=== PATIENT | female | born 1970 | race Caucasian/White ===

== ENCOUNTER 2020-06-07 10:02 | Day surgery (SDC) | payer BC ==
[~2020-06-07 10:02] MED LIST: DIPRIVAN 200 MG/20 ML IV ONE; Ketamine HCl 50 MG/ML ONE
[2020-06-07] MEDS ORDERED: Xylocaine-Mpf 2% 5 Ml Vial IJ ONE (10:03)
[2020-06-07] MEDS ORDERED: Decadron 4 MG INJ IV ONE (10:03)
--- NOTE | 2020-06-07 12:48 | XRAY ---
Indication: Left C2-C4 MBB. Intraoperative fluoroscopy provided for 23 seconds. 2 digital spot images submitted for interpretation demonstrates posterior needle tips projecting over the expected left C2-C4 nerve roots. Correlate with intraoperative findings/report. Incidental C3-C5 fusion hardware.
--- NOTE | 2020-06-07 12:50 | XRAY ---
23 seconds fluoroscopy time in surgery for left C2-C4 MBB.
[2020-06-07] MEDS ORDERED: Lactated Ringers 1,000 ML IV ONE (13:44)
== END 2020-06-07 12:20 | disposition home or self-care (01) ==
LOC: SDC-PAIN 10:02
PROVIDERS: ATTEND Psychiatry & Neurology Pain Medicine
DX: M47.812 Spondylosis without myelopathy or radiculopathy, cervical region (principal); I10 Essential (primary) hypertension; F41.8 Other specified anxiety disorders; Z79.899 Other long term (current) drug therapy
CPT/HCPCS: 72020; 77002; 84703; J1100; J2704

== ENCOUNTER 2021-02-05 08:31 | Day surgery (SDC) | payer OTHER ==
[2021-02-05] MEDS ORDERED: Lactated Ringers 1,000 ML IV ONE ×2 (08:39→09:34)
--- NOTE | 2021-02-05 08:50 | HP ---
DATE OF SURGERY: 02/05/2021 HISTORY OF PRESENT ILLNESS: The patient is a 50 year-old with past history of sister with colon cancer in the past. She denies any current bloody stools. The patient did have some right upper quadrant aches and pains in the past, had some problems with diarrhea. Given her family history of colon cancer in the past, she is in need of follow up colonoscopy. PAST MEDICAL HISTORY: Diabetes. Hypertension. Irritable bowel syndrome. History of kidney cancer and colon cancer. PAST SURGICAL HISTORY: Arthroscopic knee surgery, neck disc replacements and discs in her lower back. Rotator cuff in the past. MEDICATIONS: Lisinopril, Vyvanse, Viibryd, Methylphenidate. ALLERGIES: SENSITIVE TO CODEINE. FAMILY HISTORY: Negative in regards to this problem. SOCIAL HISTORY: Denies smoking. Drinks alcohol a couple times a week. REVIEW OF SYSTEMS: Fourteen systems reviewed. No chest pain or palpitations. Other systems negative or noncontributory as above and per preadmission questionnaire. PHYSICAL EXAMINATION: GENERAL: No acute distress. HEENT: Sclerae nonicteric. NECK: No JVD. CHEST: Equal excursion, nonlabored breathing. CVS: Regular rate and rhythm. ABDOMEN: Soft. No peritoneal signs. EXTREMITIES: No significant edema. NEURO: Alert, oriented, moving extremities symmetrically. PSYCH: Appropriate mood and affect. IMPRESSION: Family history of colon cancer, need follow up screening colonoscopy. She also had some nausea, vomiting, upper abdominal aches. She is in need of upper endoscopy to rule out dietary or other etiology will proceed with follow up screening colonoscopy as well as upper endoscopy as an outpatient. Risks and benefits explained in detail including but not limited to bleeding or infection, risk of bowel injury or perforation possibly requiring open procedure, risk of missed or nondiagnosis or incomplete exam possibly requiring barium enema/barium swallow, other studies or procedures. General risk of anesthesia or sedation, risk of bowel prep but not limited to, consent obtained, will procedure outpatient follow up screening colonoscopy as well as upper endoscopy.
[2021-02-05] MEDS ORDERED: Lactated Ringers 1,000 ML IV SCH (09:00)
[2021-02-05] MEDS ORDERED: CLINDAMYCIN-D5W 900 MG/50 ML*** 900 MG/50 ML BAG IV ONE (09:37)
[2021-02-05] MEDS ORDERED: Levofloxacin 500MG/100ML D5W 500 MG/100 ML BAG IV ONE (09:38)
[2021-02-05] MEDS ORDERED: DIPRIVAN 200 MG/20 ML IV ONE ×2 (10:48→11:09)
[2021-02-05] MEDS ORDERED: Versed 2 MG/2 ML Injection ONE (10:48)
[2021-02-05] MEDS ORDERED: Xylocaine-Mpf 2% 5 Ml Vial ONE (10:49)
[2021-02-05 12:15] VITALS: BP 116/86; PULSE 75; O2SAT 98
--- NOTE | 2021-02-06 08:03 | OP ---
SURGERY DATE/TIME: 02/05/2021 1052 PREOPERATIVE DIAGNOSES: 1) Family history of colon cancer, need for screening colonoscopy. 2) Some nausea and vomiting with some upper abdominal aches, need for upper endoscopy to evaluate for gastritis, duodenitis or celiac disease. POSTOPERATIVE DIAGNOSES: 1) ASA Class II. 2) Minimal to mild gastritis. 3) Fair bowel prep. 4) Fair normal appearing colon exam and terminal ileum. PROCEDURES: 1) EGD with cold biopsy of small bowel to evaluate for celiac sprue. 2) Cold biopsy of antrum to evaluate for Helicobacter pylori. 3) Some random cold biopsies of esophagus to evaluate eosinophilic esophagitis. 4) Colonoscopy to terminal ileum. 5) Retrograde ileoscopy. 6) Some random cold biopsies of colon to evaluate for microscopic colitis. SURGEON: Dr. Jatin Lopes. ANESTHESIA: MAC. ESTIMATED BLOOD LOSS: Minimal. INDICATIONS: As noted above. Risks and benefits explained in detail and not limited to and consent obtained. DESCRIPTION OF PROCEDURE AND FINDINGS: The patient is taken to the operating room. MAC anesthesia introduced. After official time out and no disagreement with planned procedure, bite block positioned. Video gastroscope easily passed down the esophagus through the patent pylorus down to the second and third portions of the duodenum. Third, second, first portions of duodenum grossly unremarkable. Given her symptom complaints with some nausea, vomiting and some vague ache at times some cold biopsies taken of the small bowel to rule out celiac sprue. Good hemostasis noted. The scope pulled back in the stomach. She did have some mild gastric erythema. It was felt she had some minimal to mild gastritis. Cold biopsy taken to evaluate for Helicobacter pylori. Good hemostasis noted. On retroflex, the gastroesophageal junction snug against the scope. No signs of any significant hiatal hernia. Otherwise the scope was straightened, pulled back. No signs of any ulcers, polyps or any other mucosal lesions in the stomach. The scope pulled back to gastroesophageal junction. The Z-line was fairly crisp. The gastroesophageal junction was around 39 cm. Given her symptom complaints of her vague nausea and vomiting some random cold biopsies taken to evaluate for eosinophilic esophagitis. Good hemostasis noted. The scope is withdrawn. Attention is then turned to colonoscopy. Digital rectal exam did not reveal any rectal masses. Video colonoscope inserted. She had some minimal internal hemorrhoids. Video colonoscope inserted and passed up through the slightly tortuous sigmoid, descending, transverse and ascending colon. With external pressure the scope was able to be passed around to the cecum and up the terminal ileum. Retrograde ileoscopy was performed which was grossly unremarkable. No signs of any inflammatory bowel disease or other mucosal lesions. The scope is slowly and carefully withdrawn over the next seven minutes. Appendiceal orifice and valve were photo documented. The terminal ileum is photo documented. The scope was slowly and carefully withdrawn. Given her vague complaints of nausea, vomiting and some right-sided aches at times some random cold biopsies were taken to evaluate for microscopic colitis. Otherwise the prep overall was fair. Withdrawal time was around seven minutes. The scope is slowly and carefully withdrawn. There are no signs of any large polyps, masses or obstructing lesions. The scope is withdrawn. The patient tolerated the procedure well. There were no immediate complications. Given her family history of colon cancer, if the path is benign, I recommend follow up colonoscopy in five years.
== END 2021-02-05 12:14 | disposition home or self-care (01) ==
LOC: SDC 08:31
PROVIDERS: ATTEND Surgery
DX: Z12.11 Encounter for screening for malignant neoplasm of colon (principal); Z80.0 Family history of malignant neoplasm of digestive organs; K29.70 Gastritis, unspecified, without bleeding; K64.8 Other hemorrhoids; R11.2 Nausea with vomiting, unspecified
CPT/HCPCS: 84703; J1956; J2250; J2704

== ENCOUNTER 2022-06-05 15:00 | Day surgery (SDC) | payer OTHER ==
[2022-06-05] MEDS ORDERED: Marcaine Mpf 0.5% Vial 30 Ml IJ ONE (15:01)
[2022-06-05] MEDS ORDERED: DIPRIVAN 200 MG/20 ML IV ONE (16:48)
[2022-06-05] MEDS ORDERED: Lactated Ringers 1,000 ML IV ONE (17:41)
--- NOTE | 2022-06-05 19:43 | XRAY ---
Indication: Left C2-C4 MBB. Intraoperative fluoroscopy provided for 17 seconds. 2 digital spot images submitted for interpretation demonstrates posterior needle tips projecting over the expected left C2-C4 nerve roots. Correlate with intraoperative findings/report. Incidental partially visualized C3-C4 anterior fusion hardware.
--- NOTE | 2022-06-06 10:58 | XRAY ---
17 seconds of fluoroscopy was used in surgery for a left C2-C4 MBB.
== END 2022-06-05 17:15 | disposition home or self-care (01) ==
LOC: SDC-PAIN 15:00
PROVIDERS: ATTEND Psychiatry & Neurology Pain Medicine
DX: M47.812 Spondylosis without myelopathy or radiculopathy, cervical region (principal); Z79.899 Other long term (current) drug therapy
CPT/HCPCS: 64490; 64491; 72040; 77002; 81025; J2704

== ENCOUNTER 2023-03-05 07:21 | Day surgery (SDC) | payer OTHER ==
[2023-03-05] MEDS ORDERED: Decadron 4 MG INJ IV ONE (07:22)
[2023-03-05] MEDS ORDERED: BUPIVACAINE 0.5% VIAL IJ ONE (07:22)
[2023-03-05] MEDS ORDERED: LIDOCAINE HCL 1% 50 MG/5 ML VL PF IJ ONE (07:22)
[2023-03-05 07:37] LABS: HCG URINE TEST NEGATIVE (NEGATIVE)
[2023-03-05] MEDS ORDERED: DIPRIVAN 200 MG/20 ML IV ONE ×2 (08:04→08:16)
--- NOTE | 2023-03-05 09:52 | XRAY ---
Indication: Left C2-C4 RFA Intraoperative fluoroscopy provided for 31 seconds. 4 digital spot images submitted for interpretation demonstrates posterior needle tips projecting over the expected left C2-C4 nerve roots. Correlate with intraoperative findings/report. Incidental incompletely visualized multilevel anterior cervical fusion hardware.
--- NOTE | 2023-03-05 10:46 | XRAY ---
31 seconds of fluoroscopy was used in surgery for a left C2-C4 RFA.
[2023-03-05] MEDS ORDERED: Lactated Ringers 1,000 ML IV ONE (10:50)
== END 2023-03-05 08:50 | disposition home or self-care (01) ==
LOC: SDC-PAIN 07:21
PROVIDERS: ATTEND Psychiatry & Neurology Pain Medicine
DX: M47.812 Spondylosis without myelopathy or radiculopathy, cervical region (principal); R73.03 Prediabetes
CPT/HCPCS: 64633; 64634; 72040; 77002; 81025; 82947; J1100; J2001; J2704

== ENCOUNTER 2023-10-01 06:51 | Day surgery (SDC) | payer OTHER ==
[2023-10-01] MEDS ORDERED: LIDOCAINE HCL 2% 100 MG/5 ML IJ ONE (06:52)
[2023-10-01 07:14] LABS: HCG URINE TEST NEGATIVE (NEGATIVE)
[2023-10-01] MEDS ORDERED: DIPRIVAN 200 MG/20 ML IV ONE (08:43)
[2023-10-01] MEDS ORDERED: Lactated Ringers 1,000 ML IV ONE (09:34)
--- NOTE | 2023-10-01 11:24 | XRAY ---
Indication: Right C2-C4 MBB. Intraoperative fluoroscopy provided for 13 seconds. 3 digital spot images submitted for interpretation demonstrates posterior needle tips projecting over the expected right C2-C4 nerve roots. Correlate with intraoperative findings/report. Incidental incompletely visualized lower cervical fusion hardware.
--- NOTE | 2023-10-01 11:47 | XRAY ---
13 seconds of fluoroscopy was used in surgery for a right C2-C4 MBB.
== END 2023-10-01 09:22 | disposition home or self-care (01) ==
LOC: SDC-PAIN 06:51
PROVIDERS: ATTEND Psychiatry & Neurology Pain Medicine
DX: M47.812 Spondylosis without myelopathy or radiculopathy, cervical region (principal); E11.9 Type 2 diabetes mellitus without complications
CPT/HCPCS: 64490; 64491; 72040; 77002; 81025; 82947; J2704

== ENCOUNTER 2023-10-29 07:05 | Day surgery (SDC) | payer OTHER ==
[2023-10-29] MEDS ORDERED: BUPIVACAINE 0.5% VIAL IJ ONE (07:06)
[2023-10-29 08:04] LABS: HCG URINE TEST NEGATIVE (NEGATIVE)
[2023-10-29] MEDS ORDERED: DIPRIVAN 200 MG/20 ML IV ONE (09:14)
--- NOTE | 2023-10-29 10:43 | XRAY ---
Indication: Right C2-C4 MBB. Intraoperative fluoroscopy provided for 10 seconds. 2 digital spot image submitted for interpretation demonstrates posterior needle tips projecting over the expected right C2-C4 nerve roots. Correlate with intraoperative findings/report. Incidental lower cervical fusion hardware.
--- NOTE | 2023-10-29 10:53 | XRAY ---
10 seconds of fluoroscopy was used in surgery for a right C2-C4 MBB.
[2023-10-29] MEDS ORDERED: Lactated Ringers 1,000 ML IV ONE (11:50)
== END 2023-10-29 09:56 | disposition home or self-care (01) ==
LOC: SDC-PAIN 07:05
PROVIDERS: ATTEND Psychiatry & Neurology Pain Medicine
DX: M47.812 Spondylosis without myelopathy or radiculopathy, cervical region (principal); R73.03 Prediabetes
CPT/HCPCS: 64490; 64491; 72040; 77002; 81025; 82947; J2704

== ENCOUNTER 2023-12-22 23:03 | Observation (INO) | payer SELFPAY ==
[2023-12-23] MEDS ORDERED: Zofran 4 MG/2 ML VIAL ONE (00:33)
[2023-12-23 00:34] LABS: Absolute Neutrophil Ct (ANC) 6.06 x10^3/uL (1.4-6.9); BASOPHIL % 0.5 % (0.0-0.4); Basophil (Absolute #) 0.05 x10^3/uL (0-0.4); Eosinophil % 1.8 % (0.00-5.0); Eosinophil (Absolute #) 0.17 x10^3/uL (0-0.5); Hematocrit 42.5 % (35-47); Hemoglobin 14.2 g/dL (12.0-16.0); IMMATURE GRAN # 0.02 x10^3u/L (0.00-0.03); IMMATURE GRAN % 0.2 % (0.00-0.4); Lymphocyte (Absolute #) 2.16 x10^3/uL (1.0-4.6); Lymphocytes % 23.3 % (24.0-44.0); Mean Cell Volume 87.1 fL (78-100); Mean Corpuscular Hemoglobin 29.1 pg (26-32); Mean Corpuscular Hgb Concent. 33.4 g/dL (32-36); Mean Platelet Volume 10.5 fL (7.5-11.0); Monocyte (Absolute #) 0.82 x10^3/uL (0.0-1.3); Monocytes % 8.8 % (0.0-12.0); Neutrophil % 65.4 % (36.0-66.0); Platelet Count 216 x10^3/uL (150-450); Red Blood Count 4.88 x10^6/uL (4.1-5.4); Red Cell Distribution Width 13.7 % (11.5-14.0); White Blood Count 9.3 x10^3/uL (4.0-10.5)
[2023-12-23] MEDS ORDERED: Hydromorphone 1 mg/ml Injection ONE ×2 (00:34→08:14)
[2023-12-23] MEDS ORDERED: TORAdol 30 mg Injection ONE ×2 (00:34→07:45)
[2023-12-23] MEDS ORDERED: Sodium Chloride 0.9% 1000 ML 1,000 ML ONE (00:34)
[2023-12-23 00:40] LABS: Appearance Clear (Clear); Bacteria None Seen /HPF (None Seen); Bilirubin Negative (Negative); Blood Trace (Negative); Epithelial Cells Few /HPF (None Seen); Glucose, Urine Negative (Negative); Hyaline Casts NONE SEEN /LPF (0-2); Ketones Negative (Negative); Leukocyte Esterase Small (Negative); Nitrite Negative (Negative); Ph 7.5 (4.6-8.0); Protein,Urine Dip Negative (Negative)
[2023-12-23] MEDS: Sodium Chloride 0.9% 1000 ML 1,000 ML IV STA (00:42)
[2023-12-23] MEDS: Hydromorphone 1 mg/ml Injection IV ONE (00:43)
[2023-12-23] MEDS: Zofran 4 MG/2 ML VIAL IV ONE (00:44)
[2023-12-23] MEDS: TORAdol 30 mg Injection IV ONE (00:44)
[2023-12-23 00:48] LABS: ALBUMIN 4.1 g/dL (3.5-5.0); ANION GAP 8.8 MEQ/L (5-15); BILIRUBIN,TOTAL 0.9 mg/dL (0.2-1.3); Creatinine 1 0.79 mg/dL (0.52-1.04); EST GLOMERULAR FILTRATION RATE 89.4 ML/MIN; Potassium 3.6 mmol/L (3.5-5.1); Total Protein 7.3 g/dL (6.3-8.2)
[2023-12-23 00:49] LABS: ADD URINE CULTURE? YES (NO)
--- NOTE | 2023-12-23 02:49 | XRAY ---
CLINICAL HISTORY: acute appendicitis COMPARISON: None TECHNIQUE: Contiguous axial images were obtained from the level of the diaphragm to the pubic symphysis with intravenous contrast . Coronal and sagittal reconstructions were likewise performed and indicated to increase the sensitivity for detecting clinically relevant pathology. If IV contrast material had not been administered, the likelihood of detecting abnormalities relevant to the patient's condition would have been substantially decreased. CT scan was performed according to ALARA (as low as reasonable achievable). ? FINDINGS: The visualized lung bases are clear. The liver is normal in size and attenuation. multiple simple cyst involving both lobes of liver-largest measures about 20 x 13 mm in right lobe segment 6. There is no intra or extrahepatic biliary ductal dilatation. Hepatic vasculature is patent. The gallbladder is present. The spleen, pancreas, and adrenal glands are unremarkable. The kidneys are normal in size and attenuation. There is no hydronephrosis or perinephric fat stranding. No renal calculi or renal masses are identified. The ureters are normal in caliber and no ureteral calculi are seen. The bladder is normal in contour. Pelvic viscera are unremarkable. No focal or diffuse bowel wall thickening or evidence of bowel obstruction is identified. Appendix appears inflamed with its maximum diameter measures about 11.6 mm. It is noted at the subcaecal position with tiny fecolith of 2mm and moderate fat stranding in right iliac fossa. No obvious features of perforation at present. Abdominal and pelvic vasculature is patent. No adenopathy or fluid collections are seen. Surgical implant at L4-L5 disc space. No aggressive appearing osseous lesions are identified. IMPRESSION: Acute appendicitis. Multiple hepatic cysts. Electronically Signed by: Zane Pastrana MD. (12/23/2023 02:45:30 EDT)
[2023-12-23] MEDS ORDERED: PIPERACILLIN/TAZOBACTAM IV ONE ×3 (02:55→05:47)
[2023-12-23] MEDS ORDERED: Sodium Chloride 100ML MINI-BAG PLUS 100 ML IV ONE ×2 (02:56→05:49)
[2023-12-23] MEDS: PIPERACILLIN/TAZOBACTAM 3.375 GM in Sodium Chloride 100ML MINI-BAG PLUS 100 ML IV ONE (03:04)
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
[2023-12-23] MEDS ORDERED: EXPAREL 133 MG/10 ML VIAL IJ ONE (05:10)
[2023-12-23] MEDS ORDERED: Marcaine Mpf 0.5% Vial 30 Ml IJ ONE (05:10)
[2023-12-23] MEDS ORDERED: HUMALOG SQ PRN (05:25)
[2023-12-23] MEDS ORDERED: Zofran 4 MG/2 ML VIAL IV PRN (05:25)
[2023-12-23] MEDS ORDERED: TYLENOL 325 MG PO PRN (05:25)
[2023-12-23] MEDS ORDERED: MORPHINE SULFATE 2 MG INJ IV PRN (05:27)
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
[2023-12-23 05:39] LABS: INR 0.94 (0.8-3.0); PROTIME 10.3 SECONDS (9.4-12.5); PTT 28.5 SECONDS (25.1-36.5)
[2023-12-23] MEDS: PIPERACILLIN/TAZOBACTAM 3.375 GM in Sodium Chloride 100ML MINI-BAG PLUS 100 ML IV SCH (05:50)
[2023-12-23] MEDS: Sodium Chloride 0.9% 1000 ML 1,000 ML IV SCH (05:50)
[2023-12-23] MEDS ORDERED: Sensorcaine 0.25% 10 ML ONE ×2 (06:20→07:27)
[2023-12-23] MEDS ORDERED: Decadron 4 MG INJ ONE (06:40)
[2023-12-23] MEDS ORDERED: DIPRIVAN 200 MG/20 ML IV ONE (06:40)
[2023-12-23] MEDS ORDERED: ROCURONIUM BROMIDE IV ONE (06:40)
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
[2023-12-23] MEDS ORDERED: SUBLIMAZE 100 MCG/2 ML ONE ×3 (07:23→10:36)
[2023-12-23] MEDS ORDERED: BRIDION 200MG/2ML IV ONE (07:45)
[2023-12-23] MEDS ORDERED: MEDICATION INTERVENTION MC SCH ×2 (07:45)
[2023-12-23] MEDS ORDERED: Versed 2 MG/2 ML Injection ONE ×2 (08:42→10:36)
[2023-12-23] MEDS ORDERED: Lactated Ringers 1,000 ML IV ONE (09:08)
[2023-12-23] MEDS ORDERED: NON-FORMULARY ITEM (Vilazodone Hcl [Viibryd] 1 EACH Tab.Ds.Pk) PO SCH (10:00)
[2023-12-23] MEDS ORDERED: LISDEXAMFETAMINE DIMESYLATE 70 MG PO SCH (10:00)
[2023-12-23] MEDS: Zestril 10 MG PO SCH (10:15)
--- NOTE | 2023-12-23 10:15 | OP ---
SURGERY DATE: 12/23/2023 SURGERY TIME: 658 PREOPERATIVE DIAGNOSIS: 1. ACUTE APPENDICITIS. POSTOPERATIVE DIAGNOSIS: 1. ACUTE APPENDICITIS, NONPERFORATED. PROCEDURE: 1. Laparoscopic appendectomy. SURGEON: Alfonso Lomas M.D. ANESTHESIA: General. ESTIMATED BLOOD LOSS: Minimal. SPECIMENS: 1. Appendix. CONDITION: Stable. COMPLICATIONS: None. HISTORY OF PRESENT ILLNESS: The patient is a 53 year-old female who presents with a 2 days of abdominal pain migrating to the right lower quadrant. On exam, she has localized guarding. CT scan shows a dilated appendix with fecalith, acute appendicitis. Discussed with the patient the risks of infection, bleeding, injury to nearby structure, and hernia. She elected to proceed with surgery. FINDINGS: Nonperforated appendicitis. DESCRIPTION OF PROCEDURE: The patient was brought to the OR. General anesthesia was induced. She was routinely positioned, prepped, draped, time-out performed. Received a preoperative antibiotic. The Veress needle inserted in the left upper quadrant. Pneumoperitoneum established. A 12 mm OcuView trocar placed in the left lower quadrant. An additional 5 mm trocar was placed infraumbilical and supraumbilical at prior scars. The abdomen was surveyed. Patient positioned. There is an acutely distended, inflamed appendix. The mesentery was taken with LigaSure. The base taken with a wide load HANNAH stapler that is satisfactory hemostatic. The 12 trocar site removed, closed with 0 Vicryl suture passer. There actually is a bleeder there, so a figure 8 is required. The suprapubic removed. The umbilical used for desufflation and then removed. Skin was closed with 4-0 Vicryl suture, steri-strips, and sterile dressing applied. All counts are correct. The patient tolerated the procedure well. Plan is for extubation.
[2023-12-23] MEDS: Ritalin 5 MG PO SCH (11:53)
--- NOTE | 2023-12-23 12:00 | PCM.DS ---
Discharge Summary Date of Admission: 12/23/23 05:09 Date of Discharge: 12/23/23 Admitting Physician: JEANCARLOS EWING MD Consults: Consults on Case 12/23/23 05:23 Consult Surgery ROUTINE Primary Care Provider: ALICIA OCAMPO Allergies Allergies codeine Allergy (Severe, Verified 12/23/23 00:06) Difficulty Breathing Hospital Summary - Hospital Course Hospital Course: 12/23/23 is a 53 year old female who presented to the ED with right lower quadrant pain. The discomfort started approximately 2 days ago after eating some fried food and has progressed over the past 24 hours. Eventually the pain localized to the right lower quadrant when bending over today. She denies any falls or other trauma, fever no chills. Patient has had some nausea without vomiting. She does currently feel hungry. Her last oral intake was at approximately 4pm on 12/22/23. In the ED, the patient was noted to have acute appendicitis, and surgery was consulted with a request for hospitalist service admission. This AM she had a lap appy and now is doing well. She has no c/o pain and Bp is stable. She reports she follows Dr. Stokes with pain managemnt and has pain medication at home. [facility] sent in post op pain meds as well. Will continue post op vitals and if they remain stable will d/c later today. - Vitals & Intake/Output Vital Signs: Vital Signs Temperature 97.3 F 12/23/23 07:56 Pulse Rate 81 12/23/23 07:56 Respiratory Rate 17 12/23/23 07:56 Blood Pressure 94/52 12/23/23 07:56 O2 Sat by Pulse Oximetry 93 L 12/23/23 07:56 Intake & Output: Intake & Output 12/20/23 12/21/23 12/22/23 12/23/23 11:59 11:59 11:59 11:59 Weight 58.7 kg - Lab Result Diagrams: 12/23/23 00:22 12/23/23 00:22 Lab Results-Last 24 Hrs: Lab Results-Last 24 Hours 12/23/23 12/23/23 12/23/23 Range/Units 00:22 00:22 00:22 WBC 9.3 (4.0-10.5) x10^3/uL RBC 4.88 (4.1-5.4) x10^6/uL Hgb 14.2 (12.0-16.0) g/dL Hct 42.5 (35-47) % MCV 87.1 (78-100) fL MCH 29.1 (26-32) pg MCHC 33.4 (32-36) g/dL RDW 13.7 (11.5-14.0) % Plt Count 216 (150-450) x10^3/uL MPV 10.5 (7.5-11.0) fL Gran % 65.4 (36.0-66.0) % Immature Gran % (Auto) 0.2 (0.00-0.4) % Nucleat RBC Rel Count 0.0 (0.00-0.1) % Eos # (Auto) 0.17 (0-0.5) x10^3/uL Immature Gran # (Auto) 0.02 (0.00-0.03) x10^3u/L Absolute Lymphs (auto) 2.16 (1.0-4.6) x10^3/uL Absolute Monos (auto) 0.82 (0.0-1.3) x10^3/uL Absolute Nucleated RBC 0.00 (0.00-0.01) x10^3u/L Lymphocytes % 23.3 L (24.0-44.0) % Monocytes % 8.8 (0.0-12.0) % Eosinophils % 1.8 (0.00-5.0) % Basophils % 0.5 (0.0-0.4) % Absolute Granulocytes 6.06 (1.4-6.9) x10^3/uL Basophils # 0.05 (0-0.4) x10^3/uL PT (9.4-12.5) SECONDS INR (0.8-3.0) APTT (25.1-36.5) SECONDS Sodium 136 (135-145) mmol/L Potassium 3.6 (3.5-5.1) mmol/L Chloride 103 (98-107) mmol/L Carbon Dioxide 28 (22-30) mmol/L Anion Gap 8.8 (5-15) MEQ/L BUN 9 (7-17) mg/dL Creatinine 0.79 (0.52-1.04) mg/dL Estimated GFR 89.4 ML/MIN Glucose 101 (74-106) mg/dL Lactic Acid (0.4-2.0) Calcium 9.0 (8.4-10.2) mg/dL Total Bilirubin 0.90 (0.2-1.3) mg/dL AST 17 (14-36) U/L ALT 15 (0-35) U/L Alkaline Phosphatase 51 (38-126) U/L Serum Total Protein 7.3 (6.3-8.2) g/dL Albumin 4.1 (3.5-5.0) g/dL Amylase 82 (30-110) U/L Lipase 103 (23-300) U/L Urine Color Yellow (Yellow) Urine Appearance Clear (Clear) Urine pH 7.5 (4.6-8.0) Ur Specific [place] 1.020 (1.005-1.030) Urine Protein Negative (Negative) Urine Glucose (UA) Negative (Negative) mg/dL Urine Ketones Negative (Negative) Urine Blood Trace (Negative) Urine Nitrite Negative (Negative) Urine Bilirubin Negative (Negative) Urine Urobilinogen 1.0 A (0.2) mg/dL Ur Leukocyte Esterase Small A (Negative) U Hyaline Cast (Auto) NONE SEEN (0-2) /LPF Urine Microscopic RBC 3-5 (0-5) /HPF Urine Microscopic WBC 6-10 A (0-5) /HPF Ur Epithelial Cells Few (None Seen) /HPF Urine Bacteria None Seen (None Seen) /HPF Urine Culture Reflexed YES (NO) 12/23/23 12/23/23 Range/Units 00:40 04:00 WBC (4.0-10.5) x10^3/uL RBC (4.1-5.4) x10^6/uL Hgb (12.0-16.0) g/dL Hct (35-47) % MCV (78-100) fL MCH (26-32) pg MCHC (32-36) g/dL RDW (11.5-14.0) % Plt Count (150-450) x10^3/uL MPV (7.5-11.0) fL Gran % (36.0-66.0) % Immature Gran % (Auto) (0.00-0.4) % Nucleat RBC Rel Count (0.00-0.1) % Eos # (Auto) (0-0.5) x10^3/uL Immature Gran # (Auto) (0.00-0.03) x10^3u/L Absolute Lymphs (auto) (1.0-4.6) x10^3/uL Absolute Monos (auto) (0.0-1.3) x10^3/uL Absolute Nucleated RBC (0.00-0.01) x10^3u/L Lymphocytes % (24.0-44.0) % Monocytes % (0.0-12.0) % Eosinophils % (0.00-5.0) % Basophils % (0.0-0.4) % Absolute Granulocytes (1.4-6.9) x10^3/uL Basophils # (0-0.4) x10^3/uL PT 10.3 (9.4-12.5) SECONDS INR 0.94 (0.8-3.0) APTT 28.5 (25.1-36.5) SECONDS Sodium (135-145) mmol/L Potassium (3.5-5.1) mmol/L Chloride (98-107) mmol/L Carbon Dioxide (22-30) mmol/L Anion Gap (5-15) MEQ/L BUN (7-17) mg/dL Creatinine (0.52-1.04) mg/dL Estimated GFR ML/MIN Glucose (74-106) mg/dL Lactic Acid 0.8 (0.4-2.0) Calcium (8.4-10.2) mg/dL Total Bilirubin (0.2-1.3) mg/dL AST (14-36) U/L ALT (0-35) U/L Alkaline Phosphatase (38-126) U/L Serum Total Protein (6.3-8.2) g/dL Albumin (3.5-5.0) g/dL Amylase (30-110) U/L Lipase (23-300) U/L Urine Color (Yellow) Urine Appearance (Clear) Urine pH (4.6-8.0) Ur Specific [place] (1.005-1.030) Urine Protein (Negative) Urine Glucose (UA) (Negative) mg/dL Urine Ketones (Negative) Urine Blood (Negative) Urine Nitrite (Negative) Urine Bilirubin (Negative) Urine Urobilinogen (0.2) mg/dL Ur Leukocyte Esterase (Negative) U Hyaline Cast (Auto) (0-2) /LPF Urine Microscopic RBC (0-5) /HPF Urine Microscopic WBC (0-5) /HPF Ur Epithelial Cells (None Seen) /HPF Urine Bacteria (None Seen) /HPF Urine Culture Reflexed (NO) - Radiology Exams Ordered Rad Exams-Entire Visit: Radiology Procedures Category Date Time Status ABDOMEN AND PELVIS W CONTRAST [CT] Stat Exams 12/23/23 00:22 Completed Discharge Exam General Appearance: no apparent distress, alert Neurologic Exam: alert, oriented x 3, cooperative, normal mood/affect, nml cerebellar function, sensation nml, No motor deficits Eye Exam: PERRL, EOMI, eyes nml inspection Ears, Nose, Throat Exam: normal ENT inspection, pharynx normal, moist mucous membranes Neck Exam: normal inspection, non-tender, supple, full range of motion Respiratory Exam: normal breath sounds, lungs clear, No respiratory distress Cardiovascular Exam: regular rate/rhythm, normal heart sounds Gastrointestinal/Abdomen Exam: soft, other (post op incisions from lap appy, CDI), No tenderness, No mass Pelvic Exam: deferred Rectal Exam: deferred Back Exam: normal inspection, normal range of motion, No CVA tenderness, No vertebral tenderness Extremity Exam: normal inspection, normal range of motion Skin Exam: normal color, warm, dry Final Diagnosis/Problem List - Final Discharge Diagnosis/Problem (1) Acute appendicitis Current Visit: Yes Status: Acute Assessment & Plan: - lap appy today - post op pain meds sent in by [facility] - continue pain meds at home prescribed by pain management PRN - Zosyn gave in OR Code(s): K35.80 - UNSPECIFIED ACUTE APPENDICITIS (2) UTI (urinary tract infection) Current Visit: Yes Status: Acute Assessment & Plan: - UC pending - will d/c with antibiotics and follow culture Code(s): N39.0 - URINARY TRACT INFECTION, SITE NOT SPECIFIED - Discharge Discharge Date: 12/23/23 Disposition: Home, Self-Care Condition: Stable Prescriptions: New Oxycodone HCl 5 mg Ir [Oxy-IR 5 MG] 5 mg PO Q6H #20 tab MDD 4 Continue Methylphenidate HCl [Methylphenidate ER] 10 mg PO DAILY Vilazodone HCl [Viibryd] 1 each PO DAILY Lisdexamfetamine Dimesylate [Vyvanse] 70 mg PO DAILY Lisinopril 10 mg [Zestril 10 MG] 10 mg PO DAILY Hydrocodone/Acetaminophen [Hydrocodone-Acetamin 10-325 mg] 1 each PO Q6H PRN PRN PRN Reason: Pain Dapagliflozin Propanediol [Farxiga] 10 mg PO DAILY Atorvastatin Calcium 20 mg PO QHS Follow up with: ALICIA OCAMPO PA [Primary Care Provider] -
[2023-12-23] MEDS: NORCO 10-325 MG PO PRN (13:31)
[2023-12-23 15:08] VITALS: TEMP 97.3
[2023-12-23 15:09] VITALS: RESP 18; O2SAT 98
[2023-12-23 15:10] VITALS: BP 127/76; PULSE 109
[2023-12-23] MEDS ORDERED: ZOCOR 20MG PO SCH (22:00)
== END 2023-12-23 14:32 | disposition home or self-care (01) ==
LOC: ED 23:03 → MED SURG 12-23 05:09
PROVIDERS: ADMIT Internal Medicine; ATTEND Internal Medicine
DX: K35.80 Unspecified acute appendicitis (principal); N39.0 Urinary tract infection, site not specified; I10 Essential (primary) hypertension; R73.03 Prediabetes; Z79.899 Other long term (current) drug therapy; Z20.828 Contact with and (suspected) exposure to other viral communicable diseases
CPT/HCPCS: 36000; 36415; 44970; 74177; 80053; 81001; 82150; 83605; 83690; 85025; 85610; 85730; 87086; 96374; 96375; 99285; G0378; Q3014; 99140; J1100; J1170; J1885; J2250; J2405; J2704; J3010; L0625; A9270-GY

== ENCOUNTER 2023-12-24 10:47 | Emergency (ER) | payer SELFPAY ==
[2023-12-24 11:32] VITALS: RESP 17; TEMP 98.4; O2SAT 100
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
[2023-12-24 12:01] VITALS: BP 110/80; PULSE 78
== END 2023-12-24 12:02 | disposition home or self-care (01) ==
LOC: ED 10:47
DX: Z48.89 Encounter for other specified surgical aftercare (principal)
CPT/HCPCS: 99281

== ENCOUNTER 2024-04-14 08:26 | Day surgery (SDC) | payer BC, OTHER ==
[2024-04-14] MEDS ORDERED: LIDOCAINE HCL 1% 50 MG/5 ML VL PF IJ ONE (08:27)
[2024-04-14] MEDS ORDERED: Decadron 4 MG INJ IV ONE (08:27)
[2024-04-14] MEDS ORDERED: BUPIVACAINE 0.5% VIAL IJ ONE (08:27)
[2024-04-14 08:59] LABS: HCG URINE TEST NEGATIVE (NEGATIVE)
[2024-04-14] MEDS ORDERED: DIPRIVAN 200 MG/20 ML IV ONE (10:18)
--- NOTE | 2024-04-14 11:50 | XRAY ---
Indication: Right C2-C4 RFA. Intraoperative fluoroscopy provided for 10 seconds. 3 digital spot image submitted for interpretation demonstrates posterior needle tips projecting over the expected right C2-C4 nerve roots. Correlate with intraoperative findings/report. Incidental lower cervical fusion hardware.
[2024-04-14] MEDS ORDERED: Lactated Ringers 1,000 ML IV ONE (12:50)
--- NOTE | 2024-04-14 13:35 | XRAY ---
10 seconds of fluoroscopy was used in surgery for a right C2-C4 RFA.
== END 2024-04-14 10:59 | disposition home or self-care (01) ==
LOC: SDC-PAIN 08:26
PROVIDERS: ATTEND Psychiatry & Neurology Pain Medicine
DX: M47.812 Spondylosis without myelopathy or radiculopathy, cervical region (principal); R73.03 Prediabetes
CPT/HCPCS: 64635; 64636; 72040; 77002; 81025; 82947; J1100; J2001; J2704

== ENCOUNTER 2024-04-28 06:31 | Day surgery (SDC) | payer BC ==
[2024-04-28] MEDS ORDERED: Decadron 4 MG INJ IV ONE (06:32)
[2024-04-28] MEDS ORDERED: LIDOCAINE HCL 1% 50 MG/5 ML VL PF IJ ONE (06:32)
[2024-04-28] MEDS ORDERED: BUPIVACAINE 0.5% VIAL IJ ONE (06:32)
[2024-04-28 07:19] LABS: HCG URINE TEST NEGATIVE (NEGATIVE)
[2024-04-28] MEDS ORDERED: DIPRIVAN 200 MG/20 ML IV ONE (07:42)
[2024-04-28] MEDS ORDERED: Lactated Ringers 1,000 ML IV ONE (09:30)
--- NOTE | 2024-04-28 10:24 | XRAY ---
Indication: Left C2-C4 RFA. Intraoperative fluoroscopy was provided for 14 seconds. 2 digital spot images submitted for interpretation demonstrates posterior needle tips projecting over expected left C2-C4 nerve roots. Correlate with intraoperative findings/report. Incidental lower cervical fusion hardware.
--- NOTE | 2024-04-28 12:27 | XRAY ---
14 seconds of fluoroscopy was used in surgery for a left C2-C4 RFA.
== END 2024-04-28 08:46 ==
LOC: SDC-PAIN 06:31
PROVIDERS: ATTEND Psychiatry & Neurology Pain Medicine
DX: M47.812 Spondylosis without myelopathy or radiculopathy, cervical region (principal); R73.03 Prediabetes
CPT/HCPCS: 64633; 64634; 72040; 77002; 81025; 82947; J1100; J2001; J2704

== ENCOUNTER 2025-06-02 02:32 | Emergency (ER) | payer OTHER ==
[2025-06-02 02:44] VITALS: TEMP 97.8
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
[2025-06-02 03:10] LABS: BASOPHIL % 0.4 % (0.1-1.2); Basophil (Absolute #) 0.05 x10^3/uL (0.01-0.08); Eosinophil (Absolute #) 0.13 x10^3/uL (0.04-0.36); Hematocrit 46.4 % (34.1-44.9); Hemoglobin 15.5 g/dL (11.2-15.7); IMMATURE GRAN # 0.05 x10^3u/L (0.001-0.031); IMMATURE GRAN % 0.4 % (0.001-0.429); Lymphocyte (Absolute #) 1.51 x10^3/uL (1.18-3.74); Mean Corpuscular Hemoglobin 30.1 pg (25.6-32.2); Mean Corpuscular Hgb Concent. 33.4 g/dL (32.2-35.5); Monocyte (Absolute #) 0.83 x10^3/uL (0.24-0.86); NUCLEATED RBC # 0.00 x10^3u/L (0.00-0.012); NUCLEATED RBC % 0.0 % (0.00-0.2); Platelet Count 332 x10^3/uL (182-369); Red Blood Count 5.15 x10^6/uL (3.93-5.22); White Blood Count 11.3 x10^3/uL (3.98-10.04)
[2025-06-02 03:16] VITALS: PULSE 76
[2025-06-02 03:17] LABS: Calcium 9.5 mg/dL (8.4-10.2); Carbon Dioxide 30.0 mmol/L (22-30); Creatinine 1 0.88 mg/dL (0.52-1.04); EST GLOMERULAR FILTRATION RATE 78.1 ML/MIN; Glucose 94.0 mg/dL (74-106); Potassium 3.3 mmol/L (3.5-5.1); SGOT/AST 26.0 U/L (14-36); SGPT/ALT 21.0 U/L (0-35); Total Protein 7.8 g/dL (6.3-8.2)
[2025-06-02 03:24] LABS: Glucose, Urine >=1000 mg/dL (Negative); Protein,Urine Dip 100 (Negative); RBC 0-2 /HPF (0-5)
[2025-06-02 04:05] VITALS: RESP 16
[2025-06-02] MEDS ORDERED: Klor Con ONE (04:06)
[2025-06-02] MEDS: Klor Con PO ONE (04:07)
[2025-06-02 04:37] VITALS: BP 111/77; O2SAT 97
== END 2025-06-02 04:38 | disposition home or self-care (01) ==
LOC: ED 02:32
DX: R11.10 Vomiting, unspecified (principal); K04.7 Periapical abscess without sinus; K59.00 Constipation, unspecified; R51.9 Headache, unspecified; E87.6 Hypokalemia; R80.9 Proteinuria, unspecified